=== PATIENT | female | born 1970 | race Two or more races ===

== ENCOUNTER → 2024-08-13 | Outpatient (CLI) | payer MEDICAID, SELFPAY ==
--- NOTE | 2024-08-13 16:34 | XR_ITS ---
Examination: CT abdomen without intravenous contrast contrast. Coronal 2-D reconstructions. Sagittal 2-D reconstructions. Date and time of exam:August 13, 2024 at 1624 hours INDICATIONS: Umbilical pain beginning 4 years ago CTDI: vol (mGy): 10.3 DLP: (mGycm): 335 Technique: Axial images of the abdomen have been obtained, 3 mm slice thickness, abdomen without intravenous contrast 2-D sagittal coronal reconstructions Low dose protocols were performed. One or more of the following dose reduction techniques were used; automated exposure control, adjustment of the mA and/or KV according to patient size, use of iterative reconstruction technique. Findings: Multiple liver cysts, the largest 7 cm Spleen not enlarged No pancreatic or adrenal mass 2 mm nonobstructing left renal calculus 23 mm umbilical hernia containing incarcerated fat No bowel obstruction Moderate disc narrowing L4-L5 IMPRESSION: 2 mm nonobstructing left renal calculus 23 mm umbilical hernia containing incarcerated fat
== END | disposition home or self-care (01) ==
LOC: CCTX 16:13
PROVIDERS: PCP Physician Assistant; Referring Provider Surgery; Visit Provider Surgery
DX: N20.0 Calculus of kidney (principal); K42.9 Umbilical hernia without obstruction or gangrene
CPT/HCPCS: 74150